=== PATIENT | male | born 1975 | race Asian ===

== ENCOUNTER 2021-04-21 18:36 | Emergency (ER) | payer MEDICAID ==
[~2021-04-21] VITALS: Ht 167.6 cm; Wt 72.7 kg
[2021-04-21 18:38] VITALS: BP 121/76
== END 2021-04-21 22:29 | disposition home or self-care (01) ==
LOC: EMS 18:38
DX: S61.512A Laceration without foreign body of left wrist, initial encounter (principal); W26.0XXA Contact with knife, initial encounter; Y93.89 Activity, other specified; Y92.89 Other specified places as the place of occurrence of the external cause; Y99.8 Other external cause status
CPT/HCPCS: 12002; 99282; Z7502

== ENCOUNTER 2021-08-09 18:48 | Emergency (ER) | payer MEDICAID ==
[~2021-08-09] VITALS: Ht 167.6 cm; Wt 77.3 kg
[2021-08-09] MEDS ORDERED: MORPHINE SULFATE 4 MG/ML SYRINGE IM ONE (20:00)
[2021-08-09] MEDS ORDERED: ONDANSETRON HCL 4 MG/2 ML VIAL IM ONE (20:00)
[2021-08-10 00:19] VITALS: BP 111/77
== END 2021-08-10 00:21 | disposition home or self-care (01) ==
LOC: EMS 18:51
DX: S80.01XA Contusion of right knee, initial encounter (principal); S50.811A Abrasion of right forearm, initial encounter; M54.2 Cervicalgia; E23.7 Disorder of pituitary gland, unspecified; M25.562 Pain in left knee; V03.99XA Pedestrian with other conveyance injured in collision with car, pick-up truck or van, unspecified whether traffic or nontraffic accident, initial encounter; Y93.89 Activity, other specified; Y92.89 Other specified places as the place of occurrence of the external cause; Y99.8 Other external cause status
CPT/HCPCS: 70450; 71045; 72125; 73030; 73080; 73110; 73521; 73562 ×2; 73590; 73610; 93005; 96372; 99285; J2270; J2405

== ENCOUNTER 2025-09-06 11:30 | Emergency (ER) | payer MEDICAID ==
[~2025-09-06] VITALS: Ht 167.6 cm; Wt 72.7 kg
[2025-09-06 11:40] VITALS: TEMP 98.1
[2025-09-06 13:15] VITALS: BP 129/75; PULSE 81; RESP 17; O2SAT 99
[2025-09-06] MEDS: ACETAMINOPHEN 500 MG TABLET PO ONE (14:19)
[2025-09-06] MEDS: KETOROLAC TROMETHAMINE 30 MG/ML VIAL IM ONE (14:19)
[2025-09-06] MEDS ORDERED: IBUP-1492 PO (14:22)
[2025-09-06] MEDS ORDERED: ACET-3385 PO (14:22)
== END 2025-09-06 16:03 | disposition home or self-care (01) ==
LOC: EMS 11:34
DX: S09.90XA Unspecified injury of head, initial encounter (principal); V43.52XA Car driver injured in collision with other type car in traffic accident, initial encounter; Y93.89 Activity, other specified; Y92.410 Unspecified street and highway as the place of occurrence of the external cause; Y99.8 Other external cause status
CPT/HCPCS: 99285; 70450; 70486; 96372; J1885